=== PATIENT | male | born 1960 | race African-American/Black ===

== ENCOUNTER 2017-08-25 15:12 | Inpatient (IN) | payer MEDICARE, MEDICAID ==
[~2017-08-25] VITALS: Ht 172.7 cm; Wt 87.1 kg
[2017-08-25] MEDS ORDERED: SODIUM CHLORIDE 0.9% 1,000 ML IV ONE (16:04)
[2017-08-25 17:37] LABS: BASOPHILS % 0.3 % (0.0-2.0); EOSINOPHILS % 0.3 % (0.0-5.0); HEMATOCRIT. 33.6 % (42.0-52.0); HEMOGLOBIN. 11.4 g/dL (14.0-18.0); LYMPHOCYTES % 13.2 % (20.0-50.0); MEAN CORPUSCULAR HEMOGLOBIN 30.6 pg (28.0-32.0); MEAN CORPUSCULAR VOLUME 90.2 fL (80.0-94.0); MONOCYTES % 9.4 % (2.0-8.0); NEUTROPHILS % 76.8 % (40.0-76.0); PLATELET 123 x1000/uL (130-400); RED BLOOD CELL COUNT 3.72 mill/uL (4.7-6.1); RED CELL DISTRIBUTION WIDTH 13.7 % (11.6-14.6)
[2017-08-25 17:48] LABS: INR 1.1; PARTIAL THROMBOPLASTIN TIME 23.6 sec (23.4-31.0); PROTHROMBIN TIME 11.8 sec (9.4-11.6)
[2017-08-25] MEDS ORDERED: PANTOPRAZOLE SODIUM 40 MG/VIAL IV STA (17:51)
[2017-08-25] MEDS ORDERED: PANTOPRAZOLE 80 MG in SODIUM CHLORIDE 0.9% 100 ML IV STA (17:51)
[2017-08-25 17:53] LABS: CHLORIDE 111 mEq/L (98-107); ETHANOL BLOOD < 10 mg/dL
[2017-08-25 17:58] LABS: CREATINE KINASE MB FRACTION 2.2 ng/mL (0.5-3.6)
[2017-08-25] MEDS ORDERED: PANTOPRAZOLE SODIUM 40 MG/VIAL IV ONE (18:32)
[2017-08-25 20:37] LABS: *AMPHETAMINES SCREEN URINE NEGATIVE (NEGATIVE); *BARBITURATES SCREEN URINE NEGATIVE (NEGATIVE); *BENZODIAZEPINES SCREEN URINE NEGATIVE (NEGATIVE); *COCAINE SCREEN URINE PRESUMTIVE POSITIVE (NEGATIVE); METHADONE URINE SCREEN NEGATIVE (NEGATIVE); OPIATES URINE SCREEN NEGATIVE (NEGATIVE)
[2017-08-25 20:40] LABS: CANNABINOID URINE SCREEN NEGATIVE (NEGATIVE); PHENCYCLIDINE URINE SCREEN NEGATIVE (NEGATIVE)
[2017-08-25 22:40] VITALS: BP 142/84
[2017-08-25 23:09] VITALS: BP 149/78
[2017-08-26] VITALS: BP 129/84
[2017-08-26] MEDS ORDERED: ACETAMINOPHEN 325MG TABLET PO PRN (00:15)
[2017-08-26] MEDS ORDERED: GUAIFENESIN 200MG/10ML SUGAR FREE UDC PO PRN (00:15)
[2017-08-26] MEDS ORDERED: ACETAMINOPHEN 650MG/20.3ML UDC GT PRN (00:15)
[2017-08-26] MEDS ORDERED: NA PHOS,M-B/NA PHOS,DI-BA ENEMA 118ML PR PRN (00:15)
[2017-08-26] MEDS ORDERED: HYDROCODONE/ACETAMINOPHEN 10/325MG TABLET PO PRN (00:15)
[2017-08-26] MEDS ORDERED: DOCUSATE SODIUM 100MG CAPSULE PO PRN (00:15)
[2017-08-26] MEDS ORDERED: ONDANSETRON HCL 4MG/2ML VIAL IV PRN (00:15)
[2017-08-26] MEDS ORDERED: HYDROCODONE/ACETAMINOPHEN 5/325MG TABLET PO PRN (00:15)
[2017-08-26] MEDS ORDERED: IPRATROPIUM/ALBUTEROL 0.5-3(2.5)MG/3ML NEB INH PRN (00:15)
[2017-08-26] MEDS ORDERED: CLONIDINE 0.1MG TABLET PO PRN (00:15)
[2017-08-26] MEDS ORDERED: ACETAMINOPHEN 650MG SUPP PR PRN (00:15)
[2017-08-26] MEDS ORDERED: MAGNESIUM/ALUMINUM HYDROXIDE/SIMETHICONE 30ML UDC PO PRN (00:15)
[2017-08-26] MEDS ORDERED: DEXTROSE 50% WATER 50ML SYRINGE IV PRN (00:15)
[2017-08-26] MEDS ORDERED: DIPHENHYDRAMINE 50MG/ML VIAL IV PRN (00:15)
[2017-08-26 04:00] VITALS: BP 132/90
[2017-08-26 04:30] LABS: CLARITY URINE CLEAR (CLEAR); COLOR URINE YELLOW (YELLOW); KETONES URINE NEGATIVE (NEGATIVE); LEUKOCYTE ESTERASE URINE NEGATIVE (NEGATIVE); NITRITE URINE NEGATIVE (NEGATIVE); OCCULT BLOOD URINE NEGATIVE (NEGATIVE); PROTEIN URINE 1+ (NEGATIVE); SPECIFIC GRAVITY URINE 1.023 (1.005-1.030); UROBILINOGEN URINE 0.2 E.U./dL (0.2-1.0)
[2017-08-26 05:31] LABS: *AMPHETAMINES SCREEN URINE NEGATIVE (NEGATIVE); *BARBITURATES SCREEN URINE NEGATIVE (NEGATIVE); *BENZODIAZEPINES SCREEN URINE NEGATIVE (NEGATIVE); *COCAINE SCREEN URINE PRESUMTIVE POSITIVE (NEGATIVE); CANNABINOID URINE SCREEN NEGATIVE (NEGATIVE); METHADONE URINE SCREEN NEGATIVE (NEGATIVE); OPIATES URINE SCREEN NEGATIVE (NEGATIVE); PHENCYCLIDINE URINE SCREEN NEGATIVE (NEGATIVE)
[2017-08-26 05:56] LABS: HEMATOCRIT 26.7 % (42.0-52.0); HEMOGLOBIN 9.1 g/dL (14.0-18.0)
[2017-08-26] MEDS: SODIUM CHLORIDE 0.9% INJ 3ML FLUSH IVF SCH ×2 (06:00→14:47)
[2017-08-26] MEDS: BLOOD SUGAR DIAGNOSTIC STRIP TEST SCH ×4 (06:17→21:00)
[2017-08-26 08:00] VITALS: BP 114/72
[2017-08-26 08:04] LABS: CREATINE KINASE MB FRACTION 2.3 ng/mL (0.5-3.6)
[2017-08-26] MEDS: PANTOPRAZOLE SODIUM 40 MG/VIAL IV SCH (08:57)
[2017-08-26] MEDS: INSULIN LISPRO 100 UNITS/ML SUBCUT SCH ×4 (09:05→21:26)
[2017-08-26 12:00] VITALS: BP 131/90
[2017-08-26 12:00] LABS: BG BASE EXCESS -0.3 mmol/L (-2.0-2.0); BG CARBOXYHEMOGLOBIN 0.2 % (0.5-1.5); BG DEOXYHEMOGLOBIN 3.5 % (0.0-5.0); BG FRACTION INSPIRED OXYGEN 21; BG HCO3 ACT 22.9 mmol/L (22.0-26.0); BG METHEMOGLOBIN 0.2 % (0.0-1.5); BG OXYGEN SATURATION 96.5 % (92.0-98.5); BG OXYHEMOGLOBIN 96.1 % (94.0-97.0); BG PCO2 31.8 mmHg (35.0-45.0); BG PH 7.475 (7.350-7.450); BG PO2 87.5 mmHg (75.0-100.0); BG SAMPLE SITE RIGHT BRACHIAL; BG TOTAL HEMOGLOBIN 9.5 g/dL (12.0-18.0); BG VENT MODE ROOM AIR
[2017-08-26] MEDS ORDERED: FENTANYL CITRATE/PF 50MCG/ML 2ML VIAL IV ONE (15:05)
[2017-08-26] MEDS ORDERED: MIDAZOLAM HCL 5 MG/5 ML VIAL IV ONE (15:05)
[2017-08-26] MEDS ORDERED: MIDAZOLAM HCL 5 MG/5 ML VIAL ONE (15:12)
[2017-08-26] MEDS ORDERED: FENTANYL CITRATE/PF 50MCG/ML 2ML VIAL ONE (15:13)
[2017-08-26] MEDS ORDERED: OMEPRAZOLE 20MG CAPSULE EXTENDED RELEASE PO NR (15:45)
[2017-08-26 16:00] VITALS: BP 135/78
[2017-08-26] MEDS: SODIUM CHL 0.45% + KCL 20MEQ/L 1,000 ML IV SCH (17:53)
[2017-08-26 20:00] VITALS: BP 144/76
[2017-08-26 20:23] LABS: HEMATOCRIT 25.9 % (42.0-52.0); HEMOGLOBIN 8.7 g/dL (14.0-18.0)
[2017-08-26 20:32] LABS: CREATINE KINASE MB FRACTION 2.3 ng/mL (0.5-3.6)
[2017-08-26] MEDS: OMEPRAZOLE 20MG CAPSULE EXTENDED RELEASE PO SCH (21:25)
[2017-08-27] VITALS (7 sets, daily range): BP systolic 116–164; BP diastolic 64–92
[2017-08-27 01:22] LABS: HEMOGLOBIN 8.4 g/dL (14.0-18.0)
[2017-08-27] MEDS: SODIUM CHL 0.45% + KCL 20MEQ/L 1,000 ML IV SCH ×2 (02:54→16:44)
[2017-08-27] MEDS: OMEPRAZOLE 20MG CAPSULE EXTENDED RELEASE PO SCH (05:59)
[2017-08-27 06:47] LABS: BASOPHILS % 0.6 % (0.0-2.0); EOSINOPHILS % 1.4 % (0.0-5.0); HEMATOCRIT. 23.3 % (42.0-52.0); HEMOGLOBIN. 7.9 g/dL (14.0-18.0); LYMPHOCYTES % 29.5 % (20.0-50.0); MEAN CORPUSCULAR HEMOGLOBIN 30.3 pg (28.0-32.0); MEAN CORPUSCULAR VOLUME 89.2 fL (80.0-94.0); MEAN PLATELET VOLUME 10.5 fl (7.4-10.4); NEUTROPHILS % 62.5 % (40.0-76.0); PLATELET 105 x1000/uL (130-400); RED BLOOD CELL COUNT 2.61 mill/uL (4.7-6.1); RED CELL DISTRIBUTION WIDTH 13.6 % (11.6-14.6)
[2017-08-27] MEDS: INSULIN LISPRO 100 UNITS/ML SUBCUT SCH ×3 (07:50→17:02)
[2017-08-27] MEDS: BLOOD SUGAR DIAGNOSTIC STRIP TEST SCH ×3 (07:54→17:02)
[2017-08-27 08:39] LABS: CHLORIDE 113 mEq/L (98-107)
[2017-08-27 08:54] LABS: HDL CHOLESTEROL 33 mg/dL (40-59); LDL CHOLESTEROL 63 mg/dL (5-100)
[2017-08-27] MEDS: PANTOPRAZOLE SODIUM 40 MG/VIAL IV SCH (10:20)
[2017-08-27 19:10] LABS: HEMATOCRIT 23.3 % (42.0-52.0); HEMOGLOBIN 7.8 g/dL (14.0-18.0)
== END 2017-08-27 20:50 | disposition left against medical advice (07) | DRG 682 ==
LOC: ER 15:32 → EDBEDREQ 16:12 → 6WST 19:46 → EDBEDREQTM 19:50 → EDBEDREQ 19:50 → ENRESERV 21:01
PROVIDERS: ADMIT Family Medicine; ATTEND Family Medicine
PROC: 0DB68ZX Excision of Stomach, Via Natural or Artificial Opening Endoscopic, Diagnostic (ICD-10-PCS; principal; 2017-08-26 15:00)
DX: N17.9 Acute kidney failure, unspecified (principal); K25.4 Chronic or unspecified gastric ulcer with hemorrhage; I11.0 Hypertensive heart disease with heart failure; E44.0 Moderate protein-calorie malnutrition; K29.71 Gastritis, unspecified, with bleeding; I42.9 Cardiomyopathy, unspecified; E11.9 Type 2 diabetes mellitus without complications; D64.9 Anemia, unspecified; E78.5 Hyperlipidemia, unspecified; Z53.21 Procedure and treatment not carried out due to patient leaving prior to being seen by health care provider; F14.10 Cocaine abuse, uncomplicated; F17.210 Nicotine dependence, cigarettes, uncomplicated; I25.10 Atherosclerotic heart disease of native coronary artery without angina pectoris; J44.9 Chronic obstructive pulmonary disease, unspecified; Z95.0 Presence of cardiac pacemaker; Z72.89 Other problems related to lifestyle; Z68.29 Body mass index [BMI] 29.0-29.9, adult
CPT/HCPCS: 36415; 36600; 71045; 80053; 80061; 80305; 81003; 82270; 82375; 82550; 82553; 82805; 82962; 83036; 84484; 85014; 85018; 85025; 85610; 85730; 88305; 88313; 93005; 93306; 96361; 96374; 96375; 99285; C9113; G0482; J1815; J2250; J3010; J3480; J7030; J7050

== ENCOUNTER 2018-02-03 12:10 | Emergency (ER) | payer MEDICARE, MEDICAID ==
[~2018-02-03] VITALS: Ht 175.3 cm; Wt 82.0 kg
[~2018-02-03 12:10] MED LIST: AMLO10TA80 PO; ASPI-986 PO; CLON-457 PO; DOCU100C21 PO; HYDR25TA PO; LISI40TA4 PO; METF10004 PO; METO-539 PO; OMEP20CA10 PO
[2018-02-03] MEDS ORDERED: KETOROLAC 30MG/ML VIAL IV STA (12:40)
[2018-02-03] MEDS ORDERED: ONDANSETRON HCL 4MG/2ML VIAL IV STA (12:40)
[2018-02-03 13:22] LABS: BASOPHILS % 0.7 % (0.0-2.0); EOSINOPHILS % 2.9 % (0.0-5.0); HEMATOCRIT. 33.7 % (42.0-52.0); LYMPHOCYTES % 26.3 % (20.0-50.0); MEAN CORPUSCULAR HEMOGLOBIN 24.4 pg (28.0-32.0); MEAN CORPUSCULAR VOLUME 74.6 fL (80.0-94.0); MEAN PLATELET VOLUME 8.7 fl (7.4-10.4); MONOCYTES % 8.7 % (2.0-8.0); NEUTROPHILS % 61.4 % (40.0-76.0); PLATELET 164 x1000/uL (130-400); RED BLOOD CELL COUNT 4.52 mill/uL (4.7-6.1); RED CELL DISTRIBUTION WIDTH 19.2 % (11.6-14.6)
[2018-02-03 13:30] LABS: CHLORIDE 95 mEq/L (98-107); INR 1.1; PROTHROMBIN TIME 10.7 sec (9.1-11.1)
[2018-02-03 14:10] VITALS: BP 131/67
== END 2018-02-03 14:24 | disposition home or self-care (01) ==
LOC: ER 12:10
DX: R10.9 Unspecified abdominal pain (principal); I11.0 Hypertensive heart disease with heart failure; I50.9 Heart failure, unspecified; E11.9 Type 2 diabetes mellitus without complications; N28.9 Disorder of kidney and ureter, unspecified; F17.200 Nicotine dependence, unspecified, uncomplicated; R11.0 Nausea
CPT/HCPCS: 36415; 80053; 83690; 85025; 85610; 96374; 96375; 99284; J1885; J2405

== ENCOUNTER 2018-04-24 19:43 | Emergency (ER) | payer MEDICARE, MEDICAID ==
[~2018-04-24] VITALS: Ht 177.8 cm; Wt 79.5 kg
[~2018-04-24 19:43] MED LIST changes: +DOCU-276 PO; -DOCU100C21 PO; +METF-416 PO; -METF10004 PO
[2018-04-24] MEDS ORDERED: DEXTROSE 50% WATER 50ML SYRINGE IV ONE ×3 (20:17→20:30)
[2018-04-24 20:37] LABS: BASOPHILS % 0.5 % (0.0-2.0); EOSINOPHILS % 2.7 % (0.0-5.0); HEMATOCRIT. 36.4 % (42.0-52.0); HEMOGLOBIN. 11.9 g/dL (14.0-18.0); LYMPHOCYTES % 18.6 % (20.0-50.0); MEAN CORPUSCULAR VOLUME 79.6 fL (80.0-94.0); MEAN PLATELET VOLUME 8.7 fl (7.4-10.4); MONOCYTES % 8.9 % (2.0-8.0); NEUTROPHILS % 69.3 % (40.0-76.0); PLATELET 188 x1000/uL (130-400); RED BLOOD CELL COUNT 4.56 mill/uL (4.7-6.1); RED CELL DISTRIBUTION WIDTH 22.2 % (11.6-14.6)
[2018-04-24 20:41] LABS: INR 1.1
[2018-04-24 20:42] LABS: CHLORIDE 99 mEq/L (98-107)
[2018-04-24 21:44] VITALS: BP 149/74
[2018-04-24 21:45] LABS: PLATELET ESTIMATE NORMAL
[2018-04-24 21:51] LABS: CLARITY URINE CLEAR (CLEAR); COLOR URINE YELLOW (YELLOW); KETONES URINE NEGATIVE (NEGATIVE); LEUKOCYTE ESTERASE URINE NEGATIVE (NEGATIVE); NITRITE URINE NEGATIVE (NEGATIVE); OCCULT BLOOD URINE NEGATIVE (NEGATIVE); PH URINE 6.5 (4.5-8.0); PROTEIN URINE 1+ (NEGATIVE); SPECIFIC GRAVITY URINE 1.015 (1.005-1.030); UROBILINOGEN URINE 0.2 E.U./dL (0.2-1.0)
== END 2018-04-24 21:55 | disposition left against medical advice (07) ==
LOC: ER 19:51 → CANBEDREQ 04-25 00:22
DX: E11.649 Type 2 diabetes mellitus with hypoglycemia without coma (principal); I13.0 Hypertensive heart and chronic kidney disease with heart failure and stage 1 through stage 4 chronic kidney disease, or unspecified chronic kidney disease; E11.22 Type 2 diabetes mellitus with diabetic chronic kidney disease; N18.9 Chronic kidney disease, unspecified; I50.9 Heart failure, unspecified; J44.9 Chronic obstructive pulmonary disease, unspecified; Z95.0 Presence of cardiac pacemaker; Z79.82 Long term (current) use of aspirin
CPT/HCPCS: 36415; 71045; 82962; 84484; 93005; 99285

== ENCOUNTER 2018-08-15 18:01 | Emergency (ER) | payer MEDICARE, MEDICAID ==
[~2018-08-15] VITALS: Ht 175.3 cm; Wt 84.0 kg
[2018-08-15] MEDS ORDERED: LIDOCAINE HCL/PF 1% 10 MG/ML 5ML VIAL IJ ONE (23:30)
[2018-08-15] MEDS ORDERED: IBUPROFEN 600MG TABLET PO ONE (23:30)
[2018-08-15] MEDS ORDERED: BACITRACIN ZINC OINT UDPKT TOP ONE (23:30)
[2018-08-16 00:32] VITALS: BP 169/92
== END 2018-08-16 00:33 | disposition home or self-care (01) ==
LOC: ER 18:01
DX: H44.001 Unspecified purulent endophthalmitis, right eye (principal); F12.10 Cannabis abuse, uncomplicated; F14.10 Cocaine abuse, uncomplicated; I10 Essential (primary) hypertension; E11.9 Type 2 diabetes mellitus without complications; Z98.890 Other specified postprocedural states
CPT/HCPCS: 10060; 99283; J3490

== ENCOUNTER 2019-04-29 00:35 | Inpatient (IN) | payer MEDICARE, MEDICAID ==
[~2019-04-29] VITALS: Ht 172.7 cm; Wt 78.0 kg
[2019-04-29] VITALS (17 sets, daily range): BP systolic 110–143; BP diastolic 54–86
[~2019-04-29 00:35] MED LIST changes: -OMEP20CA10 PO; +OMEP20CA5 PO
[2019-04-29] MEDS ORDERED: SODIUM CHLORIDE 0.9% 1,000 ML IV ONE (01:35)
[2019-04-29] MEDS ORDERED: PIPERACILLIN/TAZ 3.375G PREMIX 50 ML IV ONE (01:45)
[2019-04-29] MEDS ORDERED: VANCOMYCIN 1 G PREMIX 200 ML IV ONE (01:45)
[2019-04-29 02:40] LABS: BASOPHILS % 0.2 % (0.0-2.0); EOSINOPHILS % 0.2 % (0.0-5.0); LYMPHOCYTES % 8.9 % (20.0-50.0); MEAN CORPUSCULAR HEMOGLOBIN 27.5 pg (28.0-32.0); MEAN CORPUSCULAR VOLUME 86.9 fL (80.0-94.0); MEAN PLATELET VOLUME 7.7 fl (7.4-10.4); MONOCYTES % 8.4 % (2.0-8.0); NEUTROPHILS % 82.3 % (40.0-76.0); PLATELET 291 x1000/uL (130-400); RED BLOOD CELL COUNT 1.79 mill/uL (4.7-6.1); RED CELL DISTRIBUTION WIDTH 21.3 % (11.6-14.6)
[2019-04-29 02:51] LABS: CHLORIDE 102 mEq/L (98-107)
[2019-04-29 02:56] LABS: ETHANOL BLOOD < 10 mg/dL
[2019-04-29 02:59] LABS: HEMATOCRIT. 15.5 % (42.0-52.0)
[2019-04-29 03:00] LABS: HEMOGLOBIN. 4.9 g/dL (14.0-18.0)
[2019-04-29] MEDS ORDERED: SODIUM CHLORIDE 0.9% 1000ML BAG (SEPSIS BOLUS) IV ONE (03:30)
[2019-04-29 03:45] LABS: BG BASE EXCESS 0.9 mmol/L (-2.0-2.0); BG CARBOXYHEMOGLOBIN 0.5 % (0.5-1.5); BG FRACTION INSPIRED OXYGEN 21; BG HCO3 ACT 24.3 mmol/L (22.0-26.0); BG METHEMOGLOBIN 0.1 % (0.0-1.5); BG OXYGEN SATURATION 82.9 % (92.0-98.5); BG OXYHEMOGLOBIN 82.4 % (94.0-97.0); BG PCO2 32.4 mmHg (35.0-45.0); BG PH 7.493 (7.350-7.450); BG PO2 48.3 mmHg (75.0-100.0); BG SAMPLE SITE RIGHT BRACHIAL; BG TOTAL HEMOGLOBIN 6.1 g/dL (12.0-18.0); BG VENT MODE ROOM AIR
[2019-04-29 05:47] LABS: CLARITY URINE CLEAR (CLEAR); COLOR URINE YELLOW (YELLOW); KETONES URINE NEGATIVE (NEGATIVE); LEUKOCYTE ESTERASE URINE NEGATIVE (NEGATIVE); NITRITE URINE NEGATIVE (NEGATIVE); OCCULT BLOOD URINE TRACE (NEGATIVE); PROTEIN URINE TRACE (NEGATIVE); SPECIFIC GRAVITY URINE 1.014 (1.005-1.030)
[2019-04-29 06:00] LABS: *AMPHETAMINES SCREEN URINE NEGATIVE (NEGATIVE); *BARBITURATES SCREEN URINE NEGATIVE (NEGATIVE)
[2019-04-29 06:01] LABS: *BENZODIAZEPINES SCREEN URINE NEGATIVE (NEGATIVE); *COCAINE SCREEN URINE PRESUMTIVE POSITIVE (NEGATIVE); CANNABINOID URINE SCREEN NEGATIVE (NEGATIVE); METHADONE URINE SCREEN NEGATIVE (NEGATIVE); OPIATES URINE SCREEN NEGATIVE (NEGATIVE); PHENCYCLIDINE URINE SCREEN NEGATIVE (NEGATIVE)
[2019-04-29] MEDS ORDERED: CLONIDINE 0.1MG TABLET PO PRN (07:15)
[2019-04-29] MEDS ORDERED: ZOLPIDEM TARTRATE 5MG TABLET PO PRN (07:15)
[2019-04-29] MEDS ORDERED: PANTOPRAZOLE 80 MG in SODIUM CHLORIDE 0.9% 100 ML IV SCH (07:15)
[2019-04-29] MEDS ORDERED: IPRATROPIUM/ALBUTEROL 0.5-3(2.5)MG/3ML NEB NEB PRN (07:15)
[2019-04-29] MEDS ORDERED: AZITHROMYCIN 500 MG in DEXT 5% WATER 250 ML IV SCH (07:15)
[2019-04-29] MEDS ORDERED: ACETAMINOPHEN 325MG TABLET PO PRN (07:15)
[2019-04-29] MEDS ORDERED: NITROGLYCERIN 0.4MG TABLET SL SL PRN (07:15)
[2019-04-29] MEDS ORDERED: ONDANSETRON HCL 4MG/2ML INJ IV PRN (07:15)
[2019-04-29] MEDS ORDERED: DOCUSATE SODIUM 100MG CAPSULE PO PRN (07:15)
[2019-04-29 07:52] LABS: FOLIC ACID (FOLATE) SERUM 11.9 ng/mL (>5.38)
[2019-04-29 08:08] LABS: HEPATITIS B SURFACE ANTIGEN NEGATIVE
[2019-04-29 08:36] LABS: HEPATITIS A AB IGM NEGATIVE (NEGATIVE)
[2019-04-29] MEDS ORDERED: CEFTRIAXONE 1 G PREMIX 50 ML IV SCH (09:00)
[2019-04-29] MEDS: FUROSEMIDE 40MG/4ML VIAL IVP SCH ×2 (10:02→18:47)
[2019-04-29] MEDS: CEFTRIAXONE 1 G PREMIX 50 ML IV SCH (12:46)
[2019-04-29] MEDS: PANTOPRAZOLE 80 MG in SODIUM CHLORIDE 0.9% 100 ML IV SCH ×2 (12:49→22:16)
[2019-04-29] MEDS: AZITHROMYCIN 500 MG in DEXT 5% WATER 250 ML IV SCH (13:56)
[2019-04-29] MEDS: DEXT 5%/0.45% NACL 1000ML 1,000 ML IV SCH ×2 (14:02→22:16)
[2019-04-29 14:18] LABS: INR 1.4
[2019-04-29 19:39] LABS: HEMATOCRIT 23.2 % (42.0-52.0); HEMOGLOBIN 7.6 g/dL (14.0-18.0)
[2019-04-29 23:11] LABS: HEMOGLOBIN 7.1 g/dL (14.0-18.0)
[2019-04-30] VITALS (17 sets, daily range): BP systolic 106–133; BP diastolic 46–78
[2019-04-30 06:02] LABS: BASOPHILS % 0.1 % (0.0-2.0); EOSINOPHILS % 0.8 % (0.0-5.0); LYMPHOCYTES % 8.6 % (20.0-50.0); MEAN CORPUSCULAR HEMOGLOBIN 28.6 pg (28.0-32.0); MEAN CORPUSCULAR VOLUME 85.6 fL (80.0-94.0); MONOCYTES % 8.8 % (2.0-8.0); NEUTROPHILS % 81.7 % (40.0-76.0); PLATELET 197 x1000/uL (130-400); RED BLOOD CELL COUNT 2.41 mill/uL (4.7-6.1); RED CELL DISTRIBUTION WIDTH 16.8 % (11.6-14.6)
[2019-04-30 06:22] LABS: CHLORIDE 104 mEq/L (98-107)
[2019-04-30 06:29] LABS: HEMATOCRIT. 20.6 % (42.0-52.0); HEMOGLOBIN. 6.9 g/dL (14.0-18.0)
[2019-04-30] MEDS: PANTOPRAZOLE 80 MG in SODIUM CHLORIDE 0.9% 100 ML IV SCH ×3 (07:35→19:26)
[2019-04-30] MEDS: FUROSEMIDE 40MG/4ML VIAL IVP SCH ×2 (09:34→16:55)
[2019-04-30] MEDS: AZITHROMYCIN 500 MG in DEXT 5% WATER 250 ML IV SCH (09:40)
[2019-04-30] MEDS: CEFTRIAXONE 1 G PREMIX 50 ML IV SCH (10:48)
[2019-04-30] MEDS: DEXT 5%/0.45% NACL 1000ML 1,000 ML IV SCH (12:40)
[2019-04-30] MEDS ORDERED: FERROUS SULFATE 325MG TABLET PO SCH (13:00)
[2019-04-30 16:47] LABS: HEMATOCRIT 24.9 % (42.0-52.0); HEMOGLOBIN 8.2 g/dL (14.0-18.0)
[2019-04-30] MEDS ORDERED: FENTANYL CITRATE/PF 50MCG/ML 2ML VIAL ONE (17:21)
[2019-04-30] MEDS ORDERED: MIDAZOLAM HCL 2 MG/2 ML VIAL ONE (17:22)
[2019-04-30] MEDS ORDERED: DIPHENHYDRAMINE 50MG/ML VIAL ONE (17:22)
[2019-04-30] MEDS ORDERED: PROPOFOL 200MG/20ML VIAL IV ONE (17:23)
[2019-04-30] MEDS ORDERED: IRON SUCROSE COMPLEX 100 MG/5 ML ML IV SCH (18:00)
[2019-04-30] MEDS: SUCRALFATE 1G TABLET PO SCH (22:23)
[2019-04-30 23:52] LABS: HEMATOCRIT 25.1 % (42.0-52.0); HEMOGLOBIN 8.3 g/dL (14.0-18.0)
[2019-05-01] VITALS (16 sets, daily range): BP systolic 118–162; BP diastolic 55–90
[2019-05-01] MEDS: DEXT 5%/0.45% NACL 1000ML 1,000 ML IV SCH (02:00)
[2019-05-01] MEDS: PANTOPRAZOLE 80 MG in SODIUM CHLORIDE 0.9% 100 ML IV SCH (03:00)
[2019-05-01] MEDS ORDERED: IRON SUCROSE COMPLEX 100 MG/5 ML ML IV SCH (06:00)
[2019-05-01 06:35] LABS: HEMATOCRIT 24.8 % (42.0-52.0); HEMOGLOBIN 8.2 g/dL (14.0-18.0)
[2019-05-01] MEDS: SUCRALFATE 1G TABLET PO SCH ×4 (06:55→20:35)
[2019-05-01] MEDS: FUROSEMIDE 40MG/4ML VIAL IVP SCH ×2 (08:19→18:18)
[2019-05-01] MEDS: AZITHROMYCIN 500 MG in DEXT 5% WATER 250 ML IV SCH (08:19)
[2019-05-01] MEDS ORDERED: LEVOFLOXACIN 250MG TABLET PO SCH (11:00)
[2019-05-01] MEDS ORDERED: DIATR MEGLU/DIATRIZOATE SOLN 30ML PO NR (11:45)
[2019-05-01 17:18] LABS: HEMATOCRIT 23.3 % (42.0-52.0); HEMOGLOBIN 7.7 g/dL (14.0-18.0)
[2019-05-01] MEDS: GUAIFENESIN 200MG/10ML SUGAR FREE UDC PO PRN (20:35)
[2019-05-01] MEDS ORDERED: PANTOPRAZOLE 40MG DR TABLET PO SCH (21:00)
[2019-05-02] VITALS (8 sets, daily range): BP systolic 135–156; BP diastolic 67–100
[2019-05-02] MEDS: GUAIFENESIN 200MG/10ML SUGAR FREE UDC PO PRN (01:27)
[2019-05-02] MEDS: IRON SUCROSE COMPLEX 100 MG/5 ML ML IV SCH ×2 (03:00→08:16)
[2019-05-02] MEDS ORDERED: PANTOPRAZOLE SODIUM 40 MG/VIAL IV SCH ×2 (03:15→09:00)
[2019-05-02] MEDS ORDERED: NON FORMULARY PATIENT HOME MED XX SCH (03:15)
[2019-05-02 07:09] LABS: HEMATOCRIT. 23.5 % (42.0-52.0); RED BLOOD CELL COUNT 2.66 mill/uL (4.7-6.1)
[2019-05-02 07:10] LABS: BASOPHILS % 0.6 % (0.0-2.0); EOSINOPHILS % 1.2 % (0.0-5.0); LYMPHOCYTES % 16.6 % (20.0-50.0); MEAN CORPUSCULAR VOLUME 88.4 fL (80.0-94.0); MEAN PLATELET VOLUME 8.7 fl (7.4-10.4); MONOCYTES % 10.7 % (2.0-8.0); NEUTROPHILS % 70.9 % (40.0-76.0); PLATELET 163 x1000/uL (130-400); RED CELL DISTRIBUTION WIDTH 16.2 % (11.6-14.6)
[2019-05-02 07:18] LABS: CHLORIDE 103 mEq/L (98-107)
[2019-05-02] MEDS: SUCRALFATE 1G TABLET PO SCH ×2 (08:05→12:29)
[2019-05-02] MEDS: FUROSEMIDE 40MG/4ML VIAL IVP SCH (08:16)
== END 2019-05-02 13:15 | disposition left against medical advice (07) | DRG 871 ==
LOC: ER 00:35 → 5EST 04:31 → SUPCPDRO 07:05 → ENRESERV 07:08
PROVIDERS: ADMIT Internal Medicine; ATTEND Internal Medicine
PROC: 30233N1 Transfusion of Nonautologous Red Blood Cells into Peripheral Vein, Percutaneous Approach (ICD-10-PCS; 2019-04-29)
PROC: 0DB68ZX Excision of Stomach, Via Natural or Artificial Opening Endoscopic, Diagnostic (ICD-10-PCS; principal; 2019-04-30)
DX: A41.9 Sepsis, unspecified organism (principal); J18.9 Pneumonia, unspecified organism; J96.91 Respiratory failure, unspecified with hypoxia; E43 Unspecified severe protein-calorie malnutrition; I50.43 Acute on chronic combined systolic (congestive) and diastolic (congestive) heart failure; D62 Acute posthemorrhagic anemia; J44.0 Chronic obstructive pulmonary disease with (acute) lower respiratory infection; K63.2 Fistula of intestine; N17.9 Acute kidney failure, unspecified; E11.9 Type 2 diabetes mellitus without complications; R74.0 Nonspecific elevation of levels of transaminase and lactic acid dehydrogenase [LDH]; K25.9 Gastric ulcer, unspecified as acute or chronic, without hemorrhage or perforation; E86.9 Volume depletion, unspecified; Z53.29 Procedure and treatment not carried out because of patient's decision for other reasons; F14.10 Cocaine abuse, uncomplicated; F17.210 Nicotine dependence, cigarettes, uncomplicated; I11.0 Hypertensive heart disease with heart failure; K29.70 Gastritis, unspecified, without bleeding; Z87.11 Personal history of peptic ulcer disease; Z95.0 Presence of cardiac pacemaker; Z79.899 Other long term (current) drug therapy
CPT/HCPCS: 36415; 36600; 71045; 74176; 76700; 80048; 80061; 80076; 80305; 80307; 80320; 80329; 81003; 82140; 82248; 82375; 82607; 82728; 82746; 82805; 83036; 83540; 83550; 83605; 83880; 84443; 84484; 85014; 85018; 85044; 86705; 86709; 86803; 86850; 86900; 86920; 87340; 87804; 88305; 88312; 88313; 93005; 93306; 93970; 96365; 96366; 96368; 99291; A6261; C9113; J0456; J0696; J1200; J1940; J2250; J2405; J2543; J2704; J3010; J3370; J7030; J7040; J7050; J7060; P9016; Q9963; G0480

== ENCOUNTER 2019-05-06 17:05 | Inpatient (IN) | payer MEDICARE, MEDICAID ==
[~2019-05-06] VITALS: Ht 180.3 cm; Wt 86.3 kg
[~2019-05-06 17:05] MED LIST changes: -ASPI-986 PO
[2019-05-06 18:05] LABS: BASOPHILS % 0.6 % (0.0-2.0); EOSINOPHILS % 0.4 % (0.0-5.0); LYMPHOCYTES % 10.6 % (20.0-50.0); MEAN CORPUSCULAR HEMOGLOBIN 29.1 pg (28.0-32.0); MEAN PLATELET VOLUME 8.1 fl (7.4-10.4); MONOCYTES % 5.7 % (2.0-8.0); NEUTROPHILS % 82.7 % (40.0-76.0); PLATELET 252 x1000/uL (130-400); RED BLOOD CELL COUNT 1.36 mill/uL (4.7-6.1); RED CELL DISTRIBUTION WIDTH 17.3 % (11.6-14.6)
[2019-05-06 18:08] LABS: HEMATOCRIT. 12.5 % (42.0-52.0)
[2019-05-06] MEDS ORDERED: MORPHINE SULFATE 4 MG/ML CPJ (NOT FOR IM USE) IV STA (18:08)
[2019-05-06] MEDS ORDERED: SODIUM CHLORIDE 0.9% 1,000 ML IV ONE (18:08)
[2019-05-06] MEDS ORDERED: ONDANSETRON HCL 4MG/2ML INJ IV STA (18:08)
[2019-05-06] MEDS ORDERED: KETOROLAC 30MG/ML VIAL IV STA (18:08)
[2019-05-06 18:10] LABS: CHLORIDE 104 mEq/L (98-107)
[2019-05-06] MEDS ORDERED: CEFTRIAXONE 1 G PREMIX 50 ML IV ONE (19:30)
[2019-05-06] MEDS ORDERED: NOREPINEPHRINE 4 MG in DEXT 5% WATER 246 ML IV ONE (20:30)
[2019-05-07] VITALS (31 sets, daily range): BP systolic 83–155; BP diastolic 35–80
[2019-05-07] MEDS ORDERED: ONDANSETRON HCL 4MG/2ML INJ IV PRN
[2019-05-07] MEDS: PANTOPRAZOLE SODIUM 40 MG/VIAL IV SCH ×3 (02:17→21:11)
[2019-05-07 09:35] LABS: MEAN CORPUSCULAR HEMOGLOBIN 30.4 pg (28.0-32.0); MEAN CORPUSCULAR VOLUME 90.3 fL (80.0-94.0); PLATELET 194 x1000/uL (130-400); RED BLOOD CELL COUNT 1.63 mill/uL (4.7-6.1); RED CELL DISTRIBUTION WIDTH 15.4 % (11.6-14.6)
[2019-05-07 09:42] LABS: HEMATOCRIT 14.7 % (42.0-52.0); HEMOGLOBIN 4.9 g/dL (14.0-18.0)
[2019-05-07] MEDS: SUCRALFATE 1 G/10 ML UDC PO SCH ×2 (17:41→21:11)
[2019-05-07] MEDS: HYDROCODONE/ACETAMINOPHEN 5/325MG TABLET PO PRN (18:51)
[2019-05-08] VITALS (19 sets, daily range): BP systolic 112–175; BP diastolic 54–88
[2019-05-08] MEDS: SUCRALFATE 1 G/10 ML UDC PO SCH ×4 (06:39→20:43)
[2019-05-08 06:41] LABS: BASOPHILS % 0.3 % (0.0-2.0); EOSINOPHILS % 0.7 % (0.0-5.0); LYMPHOCYTES % 9.7 % (20.0-50.0); MEAN CORPUSCULAR HEMOGLOBIN 30.4 pg (28.0-32.0); MEAN CORPUSCULAR VOLUME 91.4 fL (80.0-94.0); MEAN PLATELET VOLUME 7.8 fl (7.4-10.4); MONOCYTES % 7.9 % (2.0-8.0); NEUTROPHILS % 81.4 % (40.0-76.0); PLATELET 178 x1000/uL (130-400); RED BLOOD CELL COUNT 2.19 mill/uL (4.7-6.1); RED CELL DISTRIBUTION WIDTH 15.3 % (11.6-14.6)
[2019-05-08 06:50] LABS: HEMATOCRIT. 20.1 % (42.0-52.0); HEMOGLOBIN. 6.7 g/dL (14.0-18.0)
[2019-05-08] MEDS: PANTOPRAZOLE SODIUM 40 MG/VIAL IV SCH ×2 (08:14→20:27)
[2019-05-08] MEDS: SODIUM CHLORIDE 0.9% 1,000 ML IV SCH ×3 (08:14→16:00)
[2019-05-08] MEDS: HYDROCODONE/ACETAMINOPHEN 5/325MG TABLET PO PRN ×2 (12:51→20:49)
[2019-05-08 13:21] LABS: HEMATOCRIT 23.4 % (42.0-52.0); HEMOGLOBIN 7.8 g/dL (14.0-18.0)
[2019-05-09] VITALS (9 sets, daily range): BP systolic 120–143; BP diastolic 65–95
[2019-05-09] MEDS: SODIUM CHLORIDE 0.9% 1,000 ML IV SCH ×3 (00:03→16:12)
[2019-05-09] MEDS: SUCRALFATE 1 G/10 ML UDC PO SCH ×4 (06:19→21:02)
[2019-05-09 07:33] LABS: BASOPHILS % 0.4 % (0.0-2.0); EOSINOPHILS % 0.9 % (0.0-5.0); HEMATOCRIT. 26.7 % (42.0-52.0); HEMOGLOBIN. 9.2 g/dL (14.0-18.0); LYMPHOCYTES % 13.2 % (20.0-50.0); MEAN CORPUSCULAR HEMOGLOBIN 31.5 pg (28.0-32.0); MEAN CORPUSCULAR VOLUME 91.1 fL (80.0-94.0); MONOCYTES % 7.5 % (2.0-8.0); PLATELET 180 x1000/uL (130-400); RED BLOOD CELL COUNT 2.93 mill/uL (4.7-6.1); RED CELL DISTRIBUTION WIDTH 15.4 % (11.6-14.6)
[2019-05-09] MEDS: PANTOPRAZOLE SODIUM 40 MG/VIAL IV SCH ×2 (08:11→21:02)
[2019-05-09] MEDS: HYDROCODONE/ACETAMINOPHEN 5/325MG TABLET PO PRN (21:11)
[2019-05-10] VITALS: BP 141/83
[2019-05-10 04:00] VITALS: BP 162/92
[2019-05-10] MEDS: SUCRALFATE 1 G/10 ML UDC PO SCH ×4 (07:13→21:21)
[2019-05-10 08:00] VITALS: BP 147/85
[2019-05-10] MEDS: SODIUM CHLORIDE 0.9% 1,000 ML IV SCH ×3 (09:01→16:00)
[2019-05-10] MEDS: PANTOPRAZOLE SODIUM 40 MG/VIAL IV SCH ×2 (10:38→21:21)
[2019-05-10] MEDS: HYDROCODONE/ACETAMINOPHEN 5/325MG TABLET PO PRN ×2 (10:51→21:49)
[2019-05-10 12:00] VITALS: BP 137/80
[2019-05-10 12:18] LABS: BASOPHILS % 0.5 % (0.0-2.0); EOSINOPHILS % 1.4 % (0.0-5.0); HEMATOCRIT. 28.5 % (42.0-52.0); HEMOGLOBIN. 9.6 g/dL (14.0-18.0); LYMPHOCYTES % 15.4 % (20.0-50.0); MEAN CORPUSCULAR HEMOGLOBIN 31.1 pg (28.0-32.0); MEAN CORPUSCULAR VOLUME 92.2 fL (80.0-94.0); MEAN PLATELET VOLUME 7.8 fl (7.4-10.4); MONOCYTES % 8.1 % (2.0-8.0); NEUTROPHILS % 74.6 % (40.0-76.0); PLATELET 184 x1000/uL (130-400); RED BLOOD CELL COUNT 3.09 mill/uL (4.7-6.1); RED CELL DISTRIBUTION WIDTH 15.3 % (11.6-14.6)
[2019-05-10 16:00] VITALS: BP 154/90
[2019-05-10 20:00] VITALS: BP 153/83
[2019-05-11] VITALS: BP 164/102
[2019-05-11] MEDS: SODIUM CHLORIDE 0.9% 1,000 ML IV SCH ×3 (00:41→16:00)
[2019-05-11 04:00] VITALS: BP 170/107
[2019-05-11 06:27] LABS: BASOPHILS % 0.6 % (0.0-2.0); HEMATOCRIT. 24.4 % (42.0-52.0); HEMOGLOBIN. 8.2 g/dL (14.0-18.0); LYMPHOCYTES % 12.2 % (20.0-50.0); MEAN CORPUSCULAR VOLUME 92.3 fL (80.0-94.0); MEAN PLATELET VOLUME 7.9 fl (7.4-10.4); MONOCYTES % 7.9 % (2.0-8.0); NEUTROPHILS % 78.3 % (40.0-76.0); PLATELET 177 x1000/uL (130-400); RED BLOOD CELL COUNT 2.64 mill/uL (4.7-6.1); RED CELL DISTRIBUTION WIDTH 15.4 % (11.6-14.6)
[2019-05-11] MEDS: SUCRALFATE 1 G/10 ML UDC PO SCH ×4 (06:44→20:38)
[2019-05-11 06:51] LABS: CHLORIDE 108 mEq/L (98-107)
[2019-05-11 08:00] VITALS: BP 156/93
[2019-05-11] MEDS: PANTOPRAZOLE SODIUM 40 MG/VIAL IV SCH ×2 (08:21→20:28)
[2019-05-11 12:00] VITALS: BP 165/96
[2019-05-11 16:00] VITALS: BP 149/88
[2019-05-11 20:00] VITALS: BP 171/98
[2019-05-12] VITALS: BP 161/85
[2019-05-12] MEDS: HYDROCODONE/ACETAMINOPHEN 5/325MG TABLET PO PRN ×3 (01:06→20:55)
[2019-05-12 04:00] VITALS: BP 146/77
[2019-05-12] MEDS: SUCRALFATE 1 G/10 ML UDC PO SCH ×4 (06:36→20:56)
[2019-05-12 07:25] LABS: CHLORIDE 108 mEq/L (98-107)
[2019-05-12 07:34] LABS: BASOPHILS % 0.3 % (0.0-2.0); EOSINOPHILS % 1.3 % (0.0-5.0); HEMATOCRIT. 24.2 % (42.0-52.0); HEMOGLOBIN. 8.3 g/dL (14.0-18.0); LYMPHOCYTES % 13.2 % (20.0-50.0); MEAN CORPUSCULAR VOLUME 90.3 fL (80.0-94.0); MEAN PLATELET VOLUME 7.8 fl (7.4-10.4); MONOCYTES % 8.4 % (2.0-8.0); NEUTROPHILS % 76.8 % (40.0-76.0); PLATELET 172 x1000/uL (130-400); RED BLOOD CELL COUNT 2.68 mill/uL (4.7-6.1)
[2019-05-12] MEDS: SODIUM CHLORIDE 0.9% 1,000 ML IV SCH ×3 (07:48→15:01)
[2019-05-12] MEDS: PANTOPRAZOLE SODIUM 40 MG/VIAL IV SCH ×2 (08:08→20:55)
[2019-05-12 08:50] VITALS: BP 165/83
[2019-05-12] MEDS: CLONIDINE 0.1MG TABLET PO PRN (11:46)
[2019-05-12 12:48] VITALS: BP 175/100
[2019-05-12 16:10] VITALS: BP 166/97
[2019-05-12 20:00] VITALS: BP 150/83
[2019-05-12] MEDS: AMLODIPINE 5MG TABLET PO SCH (20:55)
[2019-05-13] VITALS (7 sets, daily range): BP systolic 117–170; BP diastolic 67–98
[2019-05-13] MEDS: SODIUM CHLORIDE 0.9% 1,000 ML IV SCH ×2 (00:39→08:00)
[2019-05-13] MEDS: CLONIDINE 0.1MG TABLET PO PRN (01:44)
[2019-05-13] MEDS: SUCRALFATE 1 G/10 ML UDC PO SCH ×4 (06:55→21:30)
[2019-05-13] MEDS: AMLODIPINE 5MG TABLET PO SCH ×2 (08:55→21:28)
[2019-05-13] MEDS: PANTOPRAZOLE SODIUM 40 MG/VIAL IV SCH ×2 (08:55→21:28)
[2019-05-13 13:13] LABS: CHLORIDE 109 mEq/L (98-107)
[2019-05-13 14:08] LABS: BASOPHILS % 0.7 % (0.0-2.0); EOSINOPHILS % 1.5 % (0.0-5.0); HEMATOCRIT. 25.3 % (42.0-52.0); HEMOGLOBIN. 8.4 g/dL (14.0-18.0); LYMPHOCYTES % 14.7 % (20.0-50.0); MEAN CORPUSCULAR HEMOGLOBIN 30.2 pg (28.0-32.0); MEAN CORPUSCULAR VOLUME 90.7 fL (80.0-94.0); MEAN PLATELET VOLUME 8.2 fl (7.4-10.4); MONOCYTES % 9.5 % (2.0-8.0); NEUTROPHILS % 73.6 % (40.0-76.0); PLATELET 164 x1000/uL (130-400); RED BLOOD CELL COUNT 2.79 mill/uL (4.7-6.1); RED CELL DISTRIBUTION WIDTH 15.1 % (11.6-14.6)
[2019-05-13] MEDS: IRON SUCROSE COMPLEX 100 MG/5 ML ML IV SCH (18:00)
[2019-05-13] MEDS: HYDROCODONE/ACETAMINOPHEN 5/325MG TABLET PO PRN (23:13)
[2019-05-14] VITALS (7 sets, daily range): BP systolic 133–155; BP diastolic 73–93
[2019-05-14] MEDS: SUCRALFATE 1 G/10 ML UDC PO SCH ×4 (06:39→21:00)
[2019-05-14] MEDS: IRON SUCROSE COMPLEX 100 MG/5 ML ML IV SCH (08:31)
[2019-05-14] MEDS: PANTOPRAZOLE SODIUM 40 MG/VIAL IV SCH ×2 (08:31→21:01)
[2019-05-14] MEDS: AMLODIPINE 5MG TABLET PO SCH ×2 (08:31→21:01)
[2019-05-14 11:41] LABS: HEMATOCRIT 23.9 % (42.0-52.0); HEMOGLOBIN 8.1 g/dL (14.0-18.0); MEAN CORPUSCULAR HEMOGLOBIN 30.7 pg (28.0-32.0); MEAN CORPUSCULAR VOLUME 90.7 fL (80.0-94.0); PLATELET 170 x1000/uL (130-400); RED BLOOD CELL COUNT 2.63 mill/uL (4.7-6.1); RED CELL DISTRIBUTION WIDTH 14.8 % (11.6-14.6)
[2019-05-14] MEDS: HYDROCODONE/ACETAMINOPHEN 5/325MG TABLET PO PRN (21:01)
[2019-05-15] VITALS: BP 127/72
[2019-05-15 04:00] VITALS: BP 152/76
[2019-05-15] MEDS: SUCRALFATE 1 G/10 ML UDC PO SCH ×4 (06:26→21:26)
[2019-05-15 08:00] VITALS: BP 135/84
[2019-05-15 09:20] LABS: HEMATOCRIT 24.5 % (42.0-52.0); HEMOGLOBIN 8.2 g/dL (14.0-18.0); MEAN CORPUSCULAR HEMOGLOBIN 29.8 pg (28.0-32.0); MEAN CORPUSCULAR VOLUME 89.2 fL (80.0-94.0); PLATELET 164 x1000/uL (130-400); RED BLOOD CELL COUNT 2.75 mill/uL (4.7-6.1)
[2019-05-15] MEDS: AMLODIPINE 5MG TABLET PO SCH ×2 (09:34→21:26)
[2019-05-15] MEDS: PANTOPRAZOLE SODIUM 40 MG/VIAL IV SCH ×2 (09:34→21:26)
[2019-05-15 13:00] VITALS: BP 157/96
[2019-05-15 16:00] VITALS: BP 149/85
[2019-05-15 20:00] VITALS: BP 138/89
[2019-05-15] MEDS: HYDROCODONE/ACETAMINOPHEN 5/325MG TABLET PO PRN (21:26)
[2019-05-16] VITALS: BP 144/70
[2019-05-16 04:00] VITALS: BP 148/88
[2019-05-16] MEDS: SUCRALFATE 1 G/10 ML UDC PO SCH ×3 (06:26→21:37)
[2019-05-16 08:45] VITALS: BP 153/88
[2019-05-16] MEDS: PANTOPRAZOLE SODIUM 40 MG/VIAL IV SCH ×2 (10:23→21:34)
[2019-05-16] MEDS: AMLODIPINE 5MG TABLET PO SCH ×2 (10:24→21:34)
[2019-05-16 12:25] VITALS: BP 147/75
[2019-05-16 16:14] VITALS: BP 166/106
[2019-05-16 20:00] VITALS: BP 178/106
[2019-05-17] VITALS: BP 168/98
[2019-05-17] MEDS: CLONIDINE 0.1MG TABLET PO PRN (01:13)
[2019-05-17 04:00] VITALS: BP 154/89
[2019-05-17] MEDS: SUCRALFATE 1 G/10 ML UDC PO SCH ×2 (06:15→12:30)
[2019-05-17 08:00] VITALS: BP 162/82
[2019-05-17] MEDS: PANTOPRAZOLE SODIUM 40 MG/VIAL IV SCH (08:49)
[2019-05-17] MEDS: AMLODIPINE 5MG TABLET PO SCH (08:50)
[2019-05-17 12:00] VITALS: BP 144/82
[2019-05-17] MEDS ORDERED: AMLO10TA4 PO (15:36)
[2019-05-17] MEDS ORDERED: PROT40 PO (15:37)
[2019-05-17] MEDS ORDERED: SUCR1TAB30 PO (15:38)
[2019-05-17] MEDS ORDERED: FERR325T23 MT (15:39)
[2019-05-17 15:40] VITALS: BP 144/82
[2019-05-17 16:00] VITALS: BP 151/94
[2019-05-18] MEDS ORDERED: FERROUS SULFATE 325MG TABLET PO SCH (09:00)
== END 2019-05-17 18:24 | DRG 377 ==
LOC: ER 17:26 → 3WST 18:39 → ENRESERV 20:45 → 6WST 05-09 16:57
PROVIDERS: ADMIT Internal Medicine; ATTEND Internal Medicine
PROC: 30233N1 Transfusion of Nonautologous Red Blood Cells into Peripheral Vein, Percutaneous Approach (ICD-10-PCS; principal; 2019-05-06)
PROC: B54BZZA Ultrasonography of Right Lower Extremity Veins, Guidance (ICD-10-PCS; 2019-05-06)
PROC: 06HY33Z Insertion of Infusion Device into Lower Vein, Percutaneous Approach (ICD-10-PCS; 2019-05-06)
DX: K25.4 Chronic or unspecified gastric ulcer with hemorrhage (principal); E43 Unspecified severe protein-calorie malnutrition; I13.0 Hypertensive heart and chronic kidney disease with heart failure and stage 1 through stage 4 chronic kidney disease, or unspecified chronic kidney disease; D64.9 Anemia, unspecified; I50.9 Heart failure, unspecified; I11.0 Hypertensive heart disease with heart failure; Z95.0 Presence of cardiac pacemaker; E11.22 Type 2 diabetes mellitus with diabetic chronic kidney disease; F14.90 Cocaine use, unspecified, uncomplicated; F17.210 Nicotine dependence, cigarettes, uncomplicated; J44.9 Chronic obstructive pulmonary disease, unspecified; N18.9 Chronic kidney disease, unspecified; K29.70 Gastritis, unspecified, without bleeding; Z96.643 Presence of artificial hip joint, bilateral; Z60.2 Problems related to living alone; Z59.0 Homelessness; Z79.82 Long term (current) use of aspirin; Z79.84 Long term (current) use of oral hypoglycemic drugs; Z79.899 Other long term (current) drug therapy
CPT/HCPCS: 36415; 36556; 71045; 74176; 80048; 80076; 82270; 83735; 83880; 84484; 85014; 85018; 85027; 86850; 86900; 86920; 93005; 93970; 99291; C9113; J0696; J1885; J3490; J7030; J7040; J7060; P9016